=== PATIENT | male | born 1960 | race Caucasian/White ===

== ENCOUNTER 2016-08-21 09:32 | Outpatient (RCR) | payer BC ==
--- OUTSIDE RECORDS SUMMARY | 2016-07-03 12:41 | XMS REPORT | Continuity of Care Document ---
Author Author [facility] Organization 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 Role Phone [facility] [place] [facility] PCP Insurance Providers Payer Name Policy Number Subscriber Name Relationship [facility] [id number] Soledad Medina 18 Self / Same As Patient Advance Directives Directive Response Recorded Date/Time Advance Directives No 04/08/16 6:55pm Problems Active Problems Medical Problem Onset Date Status Chronic neutropenia Unknown Acute Fever Unknown Acute Headache Unknown Acute Tachycardia Unknown Acute Medications Current Home Medications Medication Dose Units Route Directions Days/Qty Instructions Start Date Folic Acid 1 Mg 1 Mg Oral Daily 04/08/16 Fluticasone Propionate 16 Gm 1 [place] Nasal Twice A Day as needed for Allergies 04/08/16 Diclofenac Sodium 75 Mg 75 Mg Oral Daily 04/08/16 Diclofenac Sodium 100 Gm Topically Every 6 Hours as needed for Pain 04/09/16 Doxycycline Hyclate 100 Mg 100 Mg Oral Twice A Day 20 04/09/16 Past Home Medications Medication Directions Ordered Status Folic Acid 0.4 Mg Tablet, 0.4 Mg Oral Daily 04/08/16 Discontinued Social History Social History Problem Response Recorded Date/Time Alcohol Use Occasionally Uses 04/08/2016 6:59pm Recreational Drug Use No 04/08/2016 6:59pm Recent Foreign Travel N JOSE MANUEL INIGUEZ 06/05/2016 12:28pm Recent Hopitalizations No 04/08/2016 6:59pm Hospital Discharge Instructions No hospital discharge instructions. Plan of Care Prescriptions See Medication Section Functional Status No functional status results. Allergies, Adverse Reactions, Alerts No known allergies. Immunizations No immunization records. Vital Signs No known vital signs results. Results No known relevant diagnostic tests, laboratory data and/or discharge summary. Procedures No known history of procedures. Encounters Encounter Location Arrival/Admit Date Discharge/Depart Date Attending Provider Discharged Recurring [facility] 06/05/16 12:28pm 12:26pm MANSOOR BROWN
[~2016-08-21 09:32] MED LIST: CYANOCOBALAMIN INJ 1000 MCG/ML (CANCER CENTER) ONE; DICL100G31 TOP; DICL75TA2 PO; DOXY100T2 PO; FLUT16SP22 NS; FOLI0.4T2 PO; FOLI1TAB24 PO
[2016-08-21] MEDS ORDERED: CYANOCOBALAMIN INJ 1000 MCG/ML (CANCER CENTER) ONE (09:41)
[2016-08-21 10:00] LABS: BASOPHILS % (AUTO) 0 % (0-10); EOSINOPHILS % (AUTO) 0 % (0-10); LYMPHOCYTES # (AUTO) 1.1 X 10^3 (1.0-4.0); LYMPHOCYTES % (AUTO) 43 % (12-44); MEAN CORPUSCULAR HEMOGLOBIN 34 PG (25-34); MEAN CORPUSCULAR HGB CONC 33 G/DL (32-36); MEAN CORPUSCULAR VOLUME 103 FL (80-99); MEAN PLATELET VOLUME 10.5 FL (7.4-10.4); MONOCYTES # (AUTO) 0.7 X 10^3 (0.0-1.0); MONOCYTES % (AUTO) 29 % (0-12); NEUTROPHILS # (AUTO) 0.7 X 10^3 (1.8-7.8); NEUTROPHILS % (AUTO) 28 % (42-75); PLATELET COUNT 154 10^3/uL (130-400); RED CELL DISTRIBUTION WIDTH 13.8 % (10.0-14.5); WHITE BLOOD COUNT 2.5 10^3/uL (4.3-11.0)
[2016-08-21 10:22] LABS: ALANINE AMINOTRANSFERASE 9 U/L (0-55); ALBUMIN 4.3 G/DL (3.2-4.5); ANION GAP 11 MMOL/L (5-14); ASPARTATE AMINO TRANSFERASE 15 U/L (5-34); BILIRUBIN,TOTAL 0.5 MG/DL (0.1-1.0); BLOOD UREA NITROGEN 9 MG/DL (7-18); BUN/CREATININE RATIO 12; CARBON DIOXIDE 23 MMOL/L (21-32); CHLORIDE 106 MMOL/L (98-107); CREATININE SERUM 0.78 MG/DL (0.60-1.30); GFR ESTIMATED > 60; GLUCOSE 163 MG/DL (70-105); LACTATE DEHYDROGENASE 261 U/L (125-220); POTASSIUM 3.5 MMOL/L (3.6-5.0); SODIUM 140 MMOL/L (135-145); TOTAL PROTEIN 7.5 G/DL (6.4-8.2)
== END 2016-10-01 | disposition home or self-care (01) ==
LOC: ONC 09:32
PROVIDERS: ATTEND Internal Medicine Hematology & Oncology
DX: E53.8 Deficiency of other specified B group vitamins (principal); Z79.899 Other long term (current) drug therapy
CPT/HCPCS: 36415; 80053; 83615; 83921; 85025; 96372; 99213

== ENCOUNTER 2017-08-20 15:12 | Outpatient (RCR) | payer BC ==
[2017-07-23 15:34] LABS: BASOPHILS % (AUTO) 0 % (0-10); EOSINOPHILS % (AUTO) 1 % (0-10); HEMATOCRIT 34 % (40-54); HEMOGLOBIN 11.4 G/DL (13.3-17.7); LYMPHOCYTES # (AUTO) 1.3 X 10^3 (1.0-4.0); LYMPHOCYTES % (AUTO) 61 % (12-44); MEAN CORPUSCULAR HEMOGLOBIN 34 PG (25-34); MEAN CORPUSCULAR HGB CONC 34 G/DL (32-36); MEAN CORPUSCULAR VOLUME 102 FL (80-99); MEAN PLATELET VOLUME 11.4 FL (7.4-10.4); MONOCYTES # (AUTO) 0.6 X 10^3 (0.0-1.0); MONOCYTES % (AUTO) 29 % (0-12); NEUTROPHILS # (AUTO) 0.2 X 10^3 (1.8-7.8); NEUTROPHILS % (AUTO) 10 % (42-75); PLATELET COUNT 160 10^3/uL (130-400); RED BLOOD COUNT 3.32 10^6/uL (4.35-5.85); RED CELL DISTRIBUTION WIDTH 14.1 % (10.0-14.5); WHITE BLOOD COUNT 2.2 10^3/uL (4.3-11.0)
[2017-07-23 16:11] LABS: ALANINE AMINOTRANSFERASE 13 U/L (0-55); ALBUMIN 4.4 GM/DL (3.2-4.5); ALKALINE PHOSPHATASE 72 U/L (40-136); BILIRUBIN,TOTAL 0.5 MG/DL (0.1-1.0); BUN/CREATININE RATIO 18; CALCIUM 9.5 MG/DL (8.5-10.1); CARBON DIOXIDE 24 MMOL/L (21-32); CHLORIDE 102 MMOL/L (98-107); CREATININE SERUM 0.77 MG/DL (0.60-1.30); GFR ESTIMATED > 60; GLUCOSE 110 MG/DL (70-105); POTASSIUM 3.9 MMOL/L (3.6-5.0); SODIUM 137 MMOL/L (135-145); TOTAL PROTEIN 7.6 GM/DL (6.4-8.2)
== END 2017-10-21 | disposition home or self-care (01) ==
LOC: ONC 15:12
PROVIDERS: ATTEND Internal Medicine Hematology & Oncology
DX: E53.8 Deficiency of other specified B group vitamins (principal); Z79.899 Other long term (current) drug therapy
CPT/HCPCS: 80053; 82607; 83615; 83921; 85025; 96372; 99213

== ENCOUNTER 2018-01-13 14:35 | Outpatient (RCR) | payer BC ==
[~2018-01-13 14:35] MED LIST changes: -CYANOCOBALAMIN INJ 1000 MCG/ML (CANCER CENTER) ONE
[2018-01-13 14:46] LABS: BASOPHILS % (AUTO) 1 % (0-10); EOSINOPHILS % (AUTO) 1 % (0-10); HEMATOCRIT 35 % (40-54); HEMOGLOBIN 11.6 G/DL (13.3-17.7); LYMPHOCYTES # (AUTO) 1.2 X 10^3 (1.0-4.0); LYMPHOCYTES % (AUTO) 55 % (12-44); MEAN CORPUSCULAR HEMOGLOBIN 35 PG (25-34); MEAN CORPUSCULAR HGB CONC 33 G/DL (32-36); MEAN CORPUSCULAR VOLUME 104 FL (80-99); MONOCYTES # (AUTO) 0.6 X 10^3 (0.0-1.0); MONOCYTES % (AUTO) 30 % (0-12); NEUTROPHILS # (AUTO) 0.3 X 10^3 (1.8-7.8); NEUTROPHILS % (AUTO) 15 % (42-75); PLATELET COUNT 161 10^3/uL (130-400); RED BLOOD COUNT 3.34 10^6/uL (4.35-5.85); RED CELL DISTRIBUTION WIDTH 14.4 % (10.0-14.5); WHITE BLOOD COUNT 2.1 10^3/uL (4.3-11.0)
[2018-01-13 15:03] LABS: ALANINE AMINOTRANSFERASE 10 U/L (0-55); ALBUMIN 4.4 GM/DL (3.2-4.5); ALKALINE PHOSPHATASE 60 U/L (40-136); BILIRUBIN,TOTAL 0.7 MG/DL (0.1-1.0); BUN/CREATININE RATIO 14; CALCIUM 9.1 MG/DL (8.5-10.1); CARBON DIOXIDE 23 MMOL/L (21-32); CHLORIDE 107 MMOL/L (98-107); CREATININE SERUM 0.76 MG/DL (0.60-1.30); GFR ESTIMATED > 60; GLUCOSE 100 MG/DL (70-105); POTASSIUM 3.8 MMOL/L (3.6-5.0); SODIUM 139 MMOL/L (135-145); TOTAL PROTEIN 7.3 GM/DL (6.4-8.2)
== END 2018-04-13 | disposition home or self-care (01) ==
LOC: ONC 14:35
PROVIDERS: ATTEND Internal Medicine Hematology & Oncology
DX: D61.818 Other pancytopenia (principal); E53.8 Deficiency of other specified B group vitamins; Z86.19 Personal history of other infectious and parasitic diseases; Z79.899 Other long term (current) drug therapy
CPT/HCPCS: 36415; 80053; 83615; 83921; 85025; 99213

== ENCOUNTER 2018-06-06 09:10 | Emergency (ER) | payer BC ==
[~2018-06-06] VITALS: Ht 177.8 cm; Wt 63.5 kg
[2018-06-06 10:50] LABS: BILIRUBIN,URINE NEGATIVE (NEGATIVE); CLARITY,URINE CLEAR; COLOR,URINE YELLOW; GLUCOSE, URINE (UA) NEGATIVE (NEGATIVE); KETONES,URINE NEGATIVE (NEGATIVE); LEUKOCYTE ESTERASE ,URINE NEGATIVE (NEGATIVE); NITRITE,URINE NEGATIVE (NEGATIVE); PH,URINE 6.5 (5-9); PROTEIN,URINE NEGATIVE (NEGATIVE); UROBILINOGEN,URINE NORMAL (NORMAL)
[2018-06-06] MEDS ORDERED: fentaNYL INJECTION 100 MCG/2 ML AMP IVP STA (10:58)
[2018-06-06] MEDS ORDERED: KETOROLAC 30 MG/ML VIAL IVP STA (10:58)
[2018-06-06 10:59] LABS: BACTERIA,URINE NEGATIVE /HPF; RBC,URINE RARE /HPF
[2018-06-06 11:20] LABS: BASOPHILS % (AUTO) 0 % (0-10); EOSINOPHILS % (AUTO) 1 % (0-10); HEMATOCRIT 35 % (40-54); LYMPHOCYTES # (AUTO) 0.7 X 10^3 (1.0-4.0); LYMPHOCYTES % (AUTO) 52 % (12-44); MEAN CORPUSCULAR HEMOGLOBIN 36 PG (25-34); MEAN CORPUSCULAR HGB CONC 35 G/DL (32-36); MEAN CORPUSCULAR VOLUME 103 FL (80-99); MEAN PLATELET VOLUME 11.3 FL (7.4-10.4); MONOCYTES # (AUTO) 0.4 X 10^3 (0.0-1.0); MONOCYTES % (AUTO) 31 % (0-12); NEUTROPHILS # (AUTO) 0.2 X 10^3 (1.8-7.8); NEUTROPHILS % (AUTO) 17 % (42-75); PLATELET COUNT 121 10^3/uL (130-400); RED BLOOD COUNT 3.36 10^6/uL (4.35-5.85); RED CELL DISTRIBUTION WIDTH 13.3 % (10.0-14.5)
[2018-06-06 11:22] LABS: WHITE BLOOD COUNT 1.4 10^3/uL (4.3-11.0)
--- NOTE | 2018-06-06 11:30 | Diagnostic Imaging Report ---
Clinical indication: Patient complains of pain in posterior right lower lung area. Exam: Chest x-ray PA and lateral views. Comparisons: Chest x-ray dated 04/08/2016. Findings: Lungs/pleura: Lungs are clear. There is no pneumothorax. There is no pleural effusion. Mediastinum: Unremarkable. Pulmonary vasculature: Unremarkable. Heart: Unremarkable. Bones/extrathoracic soft tissue: There are mildly hypertrophic spurs involving the thoracic spine. Impression: There is no radiographic evidence of acute cardiopulmonary process. Dictated by: Dictated on workstation # [id number]
--- NOTE | 2018-06-06 11:31 | ED Back Pain ---
General Chief Complaint: Back Problems Stated Complaint: BACK PAIN Nursing Triage Note: PT REPORTS BACK PAIN THAT BEGAN WEDNESDAY WITHOUT AN ORGANIC CAUSE. STATES PAIN IS SHARP IN NATURE AND NEAR THE PT'S MIDDLE BACK NEAR THE SPINE. PT DENIES FALL OR WORK RELATED INJURY OR PAST BACK INJURY Nursing Sepsis Screen: No Definite Risk (VINICIUS HARRIS MED STUDENT) History of Present Illness Date Seen by Provider: Jun 06, 2018 Time Seen by Provider: 10:35 Initial Comments Gregor (prefers to go by middle name) is a 58-year old male who presents to the ED this morning with the chief complaint of non-radiating, right -sided mid/lower back pain. Patient states the pain began last Wednesday (06/01) , was initially intermittent and 2/10. Patient states his symptoms were not directly preceded by any known trigger or activity. Pain has progressively worsened since, becoming constant and sharp, and is made worse by most any movement. Patient currently rates his pain as 7/10. Patient took a hydrocodone last night that brought little to no symptomatic relief. Patient denies previous trauma, injury, or surgery to the affected area. Patient denies numbness and/or tingling in his extremities with the exception of chronic right pinky paresthesia. Patient has history of unexplained, non-symptomatic leukopenia - - for which he received a previous bone marrow biopsy, and currently receives B12 injections every month and sees Dr. Rojas at the [facility]. Patient also has hypertension and had a prior heart catheterization. Patient has had recent left ear infection and is to see Dr. Hou (ENT) tomorrow (06/07) because the drops he was prescribed have been ineffective. Patient is unsure of the prescribed blood pressure medication he takes, but does so faithfully, although he has not yet taken it today. Patient' s in December 2017 and since then he has consumed alcohol, drinking 3-4 beers per night plus more on the weekends. Patient is a previous cigarette smoker, and currently smokes marijuana "every now and then." Patient receives primary care through [facility] and [place] [facility]. Timing/Duration: 5-6 Days Severity: Moderate Pain/Injury Location: Back (right lateral, T8-12) Method of Injury: Unknown Associated Symptoms: No fever, No numbness in legs/feet, No tingling in legs/ feet, No loss of bladder control, No loss of bowel control (VINICIUS HARRIS STUDENT) Initial Comments Here with report of right sided low back pain along the lower rib margin posteriorly lateral. Pain is worsened. Doesn't remember any specific injury. Denies shortness of breath or fever. Does admit to drinking more recently due to the of his . He has been trying to cut back on that over the last couple of weeks though. Location: Other (right thoracic) Timing/Duration: 5-6 Days, Getting Worse Severity: Moderate Pain/Injury Location: Back (right lateral, T8-12) Method of Injury: Unknown Associated Symptoms: No muscle spasms, No weakness, No lower back pain ( VINICIUS CORBIN MD) Allergies and Home Medications Allergies Coded Allergies: No Known Drug Allergies (Unverified , 05/24/13) Home Medications Diclofenac Sodium 75 Mg Tablet.dr, 75 MG PO DAILY, (Reported) Diclofenac Sodium 100 Gm Gel..gram., TOP Q6H PRN for PAIN, (Reported) Fluticasone Propionate 16 Gm [place].susp, 1 SPRAY NS BID PRN for ALLERGIES, ( Reported) Folic Acid 1 Mg Tablet, 1 MG PO DAILY, (Reported) Hydrocodone Bit/Acetaminophen 1 Tab Tab, 1 EACH PO Q4-6HR PRN for PAIN-MODERATE Prescribed by: VINICIUS CORBIN on 06/06/18 1431 Patient Home Medication List Home Medication List Reviewed: Yes (VINICIUS HARRIS STUDENT) Home Medication List Reviewed: Yes (VINICIUS CORBIN MD) Review of Systems Constitutional: No chills, No diaphoresis, No dizziness, No fever EENTM: ear pain (left) Respiratory: No cough, No short of breath Cardiovascular: No chest pain, No palpitations Gastrointestinal: No abdominal pain, No constipation, No diarrhea, No vomiting Genitourinary: no symptoms reported Musculoskeletal: back pain (right-sided lateral, inferior thoracic); No neck pain Psychiatric/Neurological: Depressed (related to 's in December 2017) ( VINICIUS HARRIS STUDENT) Constitutional: No chills, No fever EENTM: No nose congestion Respiratory: No cough, No short of breath Cardiovascular: no symptoms reported Gastrointestinal: No abdominal pain, No diarrhea, No vomiting Genitourinary: no symptoms reported (VINICIUS CORBIN MD) All Other Systems Reviewed Negative Unless Noted: Yes (VINICIUS CORBIN MD) Past Eqmqero-Jiorst-Xlxgnm Hx Past Med/Social Hx: Reviewed Nursing Past Med/Soc Hx (VINICIUS CORBIN MD) Patient Social History Alcohol Beverage of Choice: Beer (3-4 per night, with greater consumption on the weekend; use increased after 's in December 2017) Recreational Drug Use: Yes (marijuana) Drug of Choice: marijuana Former Smoker, Quit: Apr 08, 1999 Recent Foreign Travel: No Contact w/Someone Who Travel: No Recent Infectious Disease Expo: No Recent Hopitalizations: No (VINICIUS HARRIS STUDENT) Alcohol Use: Regular Use (VINICIUS CORBIN MD) Immunizations Up To Date Date of Pneumonia Vaccine: Sep 13, 2014 (VINICIUS HARRIS) Seasonal Allergies Seasonal Allergies: No (VINICIUS HARRIS) Past Medical History Surgeries: Yes Abdominal, Cardiac (heart cath), Orthopedic (sacral bone marrow biopsy) Respiratory: No Cardiac: No (HEART CATH) Neurological: No Genitourinary: No Gastrointestinal: No Hepatitis Musculoskeletal: Yes (tendinitis) Endocrine: No HEENT: No Cancer: No Psychosocial: No Integumentary: No Blood Disorders: Yes (chronic leukopenia) (VINICIUS HARRIS STUDENT) Family Medical History Reviewed Nursing Family Hx (VINICIUS CORBIN MD) Alcoholism Asthma Cardiovascular disease Colon cancer Hypertension Myocardial infarction Respiratory disorder Seizure disorder Visual disorder Physical Exam Vital Signs Vital Signs - First Documented 06/06/18 09:20 Temp 98.2 Pulse 80 Resp 18 B/P (MAP) 157/94 (115) Pulse Ox 97 O2 Delivery Room Air (VINICIUS CORBIN MD) Vital Signs Capillary Refill : Less Than 3 Seconds (VINICIUS HARRIS STUDENT) Height, Weight, BMI Height: 5'10.00" Weight: 140lbs. 0.0oz. [id number]; 20.8 BMI Method:Stated General Appearance: No Apparent Distress HEENT: No Scleral Icterus (L), No Scleral Icterus (R) (mild left ear exudate); Other (poor dentition) Neck: Non Tender, Supple; No Limited Range of Motion, No Tender Lateral, No Tender Midline Cardiovascular: Regular Rate, Rhythm, No Murmur Respiratory: Lungs Clear, No Accessory Muscle Use Gastrointestinal: Non Tender, Soft; No Distended, No Guarding Back: Vertebral Tenderness (right, lateral vertebral T8-12 with mild localized edam) Skin: No Cyanosis, No Ecchymosis (of affected area); Rash (of affected area), Tattoos/Piercings (multiple tattoos) (VINICIUS HARRIS MED STUDENT) General Appearance: No Apparent Distress, WD/WN HEENT: PERRL/EOMI, Pharynx Normal Neck: Non Tender, Supple Cardiovascular: Regular Rate, Rhythm, No Murmur Respiratory: Lungs Clear, No Accessory Muscle Use Gastrointestinal: Normal Bowel Sounds, No Pulsatile Mass, Non Tender, Soft Back: No Decreased Range of Motion, No Muscle Spasm; Vertebral Tenderness ( right, lateral vertebral T8-12 with mild localized edam) Extremity: Normal Range of Motion, Non Tender Neurologic/Psychiatric: Alert, Oriented x3 Skin: Normal Color, Warm/Dry (VINICIUS CORBIN MD) Progress/Results/Core Measures Results/Orders Lab Results Laboratory Tests Test 06/06/18 10:27 Range/Units White Blood Count 1.4 *L 4.3-11.0 10^3/uL Red Blood Count 3.36 L 4.35-5.85 10^6/uL Hemoglobin 12.0 L 13.3-17.7 G/DL Hematocrit 35 L 40-54 % Mean Corpuscular Volume 103 H 80-99 FL Mean Corpuscular Hemoglobin 36 H 25-34 PG Mean Corpuscular Hemoglobin Concent 35 32-36 G/DL Red Cell Distribution Width 13.3 10.0-14.5 % Platelet Count 121 L 130-400 10^3/uL Mean Platelet Volume 11.3 H 7.4-10.4 FL Neutrophils (%) (Auto) 17 L 42-75 % Lymphocytes (%) (Auto) 52 H 12-44 % Monocytes (%) (Auto) 31 H 0-12 % Eosinophils (%) (Auto) 1 0-10 % Basophils (%) (Auto) 0 0-10 % Neutrophils # (Auto) 0.2 L 1.8-7.8 X 10^3 Lymphocytes # (Auto) 0.7 L 1.0-4.0 X 10^3 Monocytes # (Auto) 0.4 0.0-1.0 X 10^3 Eosinophils # (Auto) 0.0 0.0-0.3 10^3/uL Basophils # (Auto) 0.0 0.0-0.1 10^3/uL Urine Color YELLOW Urine Clarity CLEAR Urine pH 6.5 5-9 Urine Specific [place] 1.005 L 1.016-1.022 Urine Protein NEGATIVE NEGATIVE Urine Glucose (UA) NEGATIVE NEGATIVE Urine Ketones NEGATIVE NEGATIVE Urine Nitrite NEGATIVE NEGATIVE Urine Bilirubin NEGATIVE NEGATIVE Urine Urobilinogen NORMAL NORMAL MG/DL Urine Leukocyte Esterase NEGATIVE NEGATIVE Urine RBC (Auto) NEGATIVE NEGATIVE Urine RBC RARE /HPF Urine WBC NONE /HPF Urine Squamous Epithelial Cells 2-5 /HPF Urine Crystals NONE /LPF Urine Bacteria NEGATIVE /HPF Urine Casts NONE /LPF Urine Mucus NEGATIVE /LPF Urine Culture Indicated NO Sodium Level 140 135-145 MMOL/L Potassium Level 3.9 3.6-5.0 MMOL/L Chloride Level 103 98-107 MMOL/L Carbon Dioxide Level 28 21-32 MMOL/L Anion Gap 9 5-14 MMOL/L Blood Urea Nitrogen 9 7-18 MG/DL Creatinine 0.79 0.60-1.30 MG/DL Estimat Glomerular Filtration Rate > 60 BUN/Creatinine Ratio 11 Glucose Level 91 70-105 MG/DL Calcium Level 9.8 8.5-10.1 MG/DL Corrected Calcium 8.5-10.1 MG/DL Total Bilirubin 0.5 0.1-1.0 MG/DL Aspartate Amino Transf (AST/SGOT) 12 5-34 U/L Alanine Aminotransferase (ALT/SGPT) 9 0-55 U/L Alkaline Phosphatase 68 40-136 U/L C-Reactive Protein High Sensitivity 0.69 H 0.00-0.50 MG/DL Total Protein 7.8 6.4-8.2 GM/DL Albumin 4.6 H 3.2-4.5 GM/DL (VINICIUS CORBIN MD) My Orders Orders - VINICIUS CORBIN MD Ua Culture If Indicated (06/06/18 10:22) Cbc With Automated Diff (06/06/18 10:24) Comprehensive Metabolic Panel (06/06/18 10:24) Hs C Reactive Protein (06/06/18 10:24) Saline Lock/Iv-Start (06/06/18 10:24) Chest Pa/Lat (2 View) (06/06/18 10:54) Fentanyl Injection (Sublimaze Injection (06/06/18 10:58) Ketorolac Injection (Toradol Injection) (06/06/18 10:58) Ct Abdomen/Pelvis W (06/06/18 12:22) Iohexol Injection (Omnipaque 350 Mg/Ml 1 (06/06/18 12:30) Ns (Ivpb) (Sodium Chloride 0.9%) (06/06/18 12:30) Hydrocodone/Apap 7.5/325 Tab (Lortab 7. (06/06/18 14:13) (VINICIUS CORBIN MD) Medications Given in ED Current Medications Medications Dose Ordered Sig/Diego Route Start Time Stop Time Status Last Admin Dose Admin Iohexol 100 ml ONCE ONCE IV 06/06/18 12:30 06/06/18 12:32 DC 06/06/18 12:48 100 ML Sodium Chloride 250 ml ONCE ONCE IV 06/06/18 12:30 06/06/18 12:32 DC 06/06/18 12:49 80 ML (VINICIUS CORBIN MD) Vital Signs/I&O 06/06/18 09:20 Temp 98.2 Pulse 80 Resp 18 B/P (MAP) 157/94 (115) Pulse Ox 97 O2 Delivery Room Air (VINICIUS CORBIN MD) Blood Pressure Mean: 115 Progress Progress Note : Progress Note Seen and evaluated. CBC to assess for possible inflammatory state, CMP for electrolyte and kidney status, and CXR to assess for possible vertebral, rib or abdominal pathology. Tramadol and Fentanyl for pain. (VINICIUS HARRIS MED STUDENT) Progress Note : Progress Note I have seen and evaluated the patient and agree with above except as indicated. I have directed the plan of care. IV, labs, , Toradol 30 mg IV and fentanyl 50 g IV ordered for pain. We will get CT abdomen and pelvis with contrast due to concerns of low chest wall pain near the area of the liver and kidneys. Patient has been drinking quite a bit of alcohol and we went to evaluate the liver further. This was discussed with the patient who agrees. Normal saline 1 L bolus. Monitor patient. 1415: CT results noted. I did discuss the case with Dr. Powell and he will see the patient in clinic for follow-up regarding his CBC. Hydrocodone 7.5/325 one tab by mouth given. We will continue pain med outpatient. I did discuss with him at length about shingles as a possible diagnosis and he will watch for lesions. Discharged home with return precautions. Patient verbalize understanding instructions and agreement with plan. (VINICIUS CORBIN MD) Diagnostic Imaging Diagonstic Imaging: CT Plain Films/CT/US/NM/MRI: abdomen, pelvis Comments [facility]. [place], [place] NAME: SOLEDAD MEDINA [facility] REC#: [id number] PT STATUS: REG ER : 1960 PHYSICIAN: VINICIUS CORBIN MD ADMIT DATE: 06/06/18/ER Draft Date of Exam:06/06/18 CT ABDOMEN/PELVIS W PROCEDURE: CT abdomen and pelvis with contrast. TECHNIQUE: Multiple contiguous axial images were obtained through the abdomen and pelvis after administration of intravenous contrast. INDICATION: Posterior right back pain. Comparison is made to study of 10/27/2013. There is mild low-density throughout the liver indicating steatosis. No focal hepatic or splenic abnormalities identified. Gallbladder, pancreas and adrenal glands are stable and unremarkable. There does appear to be small cyst anterior to the upper pole of the left kidney which has not significantly changed. No free fluid is seen within the abdomen or pelvis. There is mild aortoiliac atherosclerotic calcification. Faint lucency within the T11 vertebral body is unchanged indicating probable benign etiology. There is moderate L5-S1 degenerative disc disease. IMPRESSION: There is mild aortoiliac atherosclerotic calcification with moderate L5-S1 degenerative disc disease. Note is made of hepatic steatosis, however, no acute abnormality or adverse change is seen within the abdomen or pelvis. Dictated on workstation # [id number] Dict: 06/06/18 1307 Trans: 06/06/18 1320 [facility] [id number] Interpreted by: EILEEN MULLINS MD Electronically signed by: Reviewed: Reviewed by Me (VINICIUS CORBIN MD) Departure Impression Primary Impression: Thoracic back pain Qualified Codes: M54.6 - Pain in thoracic spine Disposition: 01 HOME, SELF-CARE Condition: Improved Departure-Patient Inst. Decision time for Depature: 14:28 (VINICIUS CORBIN MD) Referrals: [facility] (PCP) Primary Care Physician MANSOOR ROJAS Patient Instructions: Upper Back Pain (DC) Add. Discharge Instructions: All discharge instructions reviewed with patient and/or family. Voiced understanding. You may take ibuprofen 600 mg every 8 hours as needed for pain. You may take the prescribed pain medicine or Tylenol/acetaminophen 1000 mg every 8 hours as needed for pain. Do not take [id number] acetaminophen with the prescribed pain medicine as they both have acetaminophen in them. Drink plenty of fluids. Keep an eye on the area of pain on your back for development of lesions. If this should occur, we would be concerned about shingles. If that occurs, call your doctor right away so we can initiate treatment or return to the emergency department. Return for worse pain, fever, vomiting, weakness, breathing problems or other concerns as needed. Scripts Hydrocodone Bit/Acetaminophen (Hydrocodone/Acetaminophen 5/325mg Tablet) 1 Tab Tab 1 EACH PO Q4-6HR PRN for PAIN-MODERATE MDD 10, #15 TAB 0 Refills Prov: VINICIUS CORBIN MD 06/06/18 Work/School Note: Work Release Form Date Seen in the Emergency Department: Jun 06, 2018 Return to Work: Jun 08, 2018 Restrictions: No Restrictions Copy Copies To 1: MANSOOR ROJAS TIMOTHY J MED STUDENT Jun 06, 2018 11:31 VINICIUS CORBIN MD Jun 06, 2018 13:03
[2018-06-06 11:36] LABS: ALANINE AMINOTRANSFERASE 9 U/L (0-55); ALBUMIN 4.6 GM/DL (3.2-4.5); ALKALINE PHOSPHATASE 68 U/L (40-136); BILIRUBIN,TOTAL 0.5 MG/DL (0.1-1.0); BUN/CREATININE RATIO 11; CALCIUM 9.8 MG/DL (8.5-10.1); CARBON DIOXIDE 28 MMOL/L (21-32); CHLORIDE 103 MMOL/L (98-107); CREATININE SERUM 0.79 MG/DL (0.60-1.30); GFR ESTIMATED > 60; GLUCOSE 91 MG/DL (70-105); POTASSIUM 3.9 MMOL/L (3.6-5.0); SODIUM 140 MMOL/L (135-145); TOTAL PROTEIN 7.8 GM/DL (6.4-8.2)
[2018-06-06] MEDS ORDERED: IOHEXOL 350 MG/ML 100 ML (OMNIPAQUE 350) VIAL IV ONE (12:30)
[2018-06-06] MEDS ORDERED: NS 250 ML (IVPB) BAG IV ONE (12:30)
--- NOTE | 2018-06-06 13:20 | Diagnostic Imaging Report ---
PROCEDURE: CT abdomen and pelvis with contrast. TECHNIQUE: Multiple contiguous axial images were obtained through the abdomen and pelvis after administration of intravenous contrast. INDICATION: Posterior right back pain. Comparison is made to study of 10/27/2013. There is mild low-density throughout the liver indicating steatosis. No focal hepatic or splenic abnormalities identified. Gallbladder, pancreas and adrenal glands are stable and unremarkable. There does appear to be small cyst anterior to the upper pole of the left kidney which has not significantly changed. No free fluid is seen within the abdomen or pelvis. There is mild aortoiliac atherosclerotic calcification. Faint lucency within the T11 vertebral body is unchanged indicating probable benign etiology. There is moderate L5-S1 degenerative disc disease. IMPRESSION: There is mild aortoiliac atherosclerotic calcification with moderate L5-S1 degenerative disc disease. Note is made of hepatic steatosis, however, no acute abnormality or adverse change is seen within the abdomen or pelvis. Dictated by: Dictated on workstation # [id number]
[2018-06-06] MEDS ORDERED: HYDROcodone/APAP 7.5 MG/325 MG (LORTAB, LORCET PLUS) TABLET PO STA (14:13)
[2018-06-06] MEDS ORDERED: ACHD5005 PO (14:31)
[2018-06-06 14:45] VITALS: BP 146/98
== END 2018-06-06 14:45 | disposition home or self-care (01) ==
LOC: EDUNIT# 09:10 → ER 09:11
DX: M54.6 Pain in thoracic spine (principal); I10 Essential (primary) hypertension; F12.10 Cannabis abuse, uncomplicated; Z80.0 Family history of malignant neoplasm of digestive organs; Z82.49 Family history of ischemic heart disease and other diseases of the circulatory system; Z79.51 Long term (current) use of inhaled steroids; Z87.891 Personal history of nicotine dependence; Z98.890 Other specified postprocedural states
CPT/HCPCS: 36415; 71046; 74177; 80053; 81000; 85025; 86141; 96374; 96375

== ENCOUNTER 2018-08-26 09:53 | Outpatient (RCR) | payer BC ==
[~2018-08-26 09:53] MED LIST changes: +ACHD5005 PO
[2018-08-26 10:15] LABS: BASOPHILS % (AUTO) 0 % (0-10); EOSINOPHILS % (AUTO) 0 % (0-10); HEMATOCRIT 37 % (40-54); HEMOGLOBIN 12.4 G/DL (13.3-17.7); LYMPHOCYTES % (AUTO) 38 % (12-44); MEAN CORPUSCULAR HEMOGLOBIN 35 PG (25-34); MEAN CORPUSCULAR HGB CONC 34 G/DL (32-36); MEAN CORPUSCULAR VOLUME 103 FL (80-99); MEAN PLATELET VOLUME 11.6 FL (7.4-10.4); MONOCYTES # (AUTO) 0.9 X 10^3 (0.0-1.0); MONOCYTES % (AUTO) 34 % (0-12); NEUTROPHILS # (AUTO) 0.8 X 10^3 (1.8-7.8); NEUTROPHILS % (AUTO) 29 % (42-75); PLATELET COUNT 133 10^3/uL (130-400); RED CELL DISTRIBUTION WIDTH 14.8 % (10.0-14.5); WHITE BLOOD COUNT 2.8 10^3/uL (4.3-11.0)
[2018-08-26 10:27] LABS: ALANINE AMINOTRANSFERASE 11 U/L (0-55); ALBUMIN 4.3 GM/DL (3.2-4.5); ALKALINE PHOSPHATASE 59 U/L (40-136); BILIRUBIN,TOTAL 0.7 MG/DL (0.1-1.0); BUN/CREATININE RATIO 11; CALCIUM 9.2 MG/DL (8.5-10.1); CARBON DIOXIDE 26 MMOL/L (21-32); CHLORIDE 106 MMOL/L (98-107); GFR ESTIMATED > 60; GLUCOSE 106 MG/DL (70-105); POTASSIUM 4.3 MMOL/L (3.6-5.0); SODIUM 140 MMOL/L (135-145); TOTAL PROTEIN 7.1 GM/DL (6.4-8.2)
== END 2018-11-24 | disposition home or self-care (01) ==
LOC: ONC 09:53
PROVIDERS: ATTEND Internal Medicine Hematology & Oncology
DX: D61.818 Other pancytopenia (principal); E53.8 Deficiency of other specified B group vitamins; Z86.19 Personal history of other infectious and parasitic diseases; Z79.899 Other long term (current) drug therapy
CPT/HCPCS: 80053; 83615; 83921; 85025; 99213

== ENCOUNTER → 2019-05-12 | Outpatient (CLI) | payer BC ==
[2019-05-12 10:31] LABS: BASOPHILS % (AUTO) 1 % (0-10); EOSINOPHILS % (AUTO) 2 % (0-10); HEMATOCRIT 37 % (40-54); HEMOGLOBIN 12.7 G/DL (13.3-17.7); LYMPHOCYTES # (AUTO) 1.1 X 10^3 (1.0-4.0); LYMPHOCYTES % (AUTO) 58 % (12-44); MEAN CORPUSCULAR HEMOGLOBIN 34 PG (25-34); MEAN CORPUSCULAR HGB CONC 34 G/DL (32-36); MEAN CORPUSCULAR VOLUME 101 FL (80-99); MEAN PLATELET VOLUME 11.2 FL (7.4-10.4); MONOCYTES # (AUTO) 0.4 X 10^3 (0.0-1.0); MONOCYTES % (AUTO) 23 % (0-12); NEUTROPHILS # (AUTO) 0.3 X 10^3 (1.8-7.8); NEUTROPHILS % (AUTO) 17 % (42-75); PLATELET COUNT 147 10^3/uL (130-400); RED CELL DISTRIBUTION WIDTH 14.2 % (10.0-14.5); WHITE BLOOD COUNT 1.9 10^3/uL (4.3-11.0)
[2019-05-12 10:45] LABS: ALANINE AMINOTRANSFERASE 16 U/L (0-55); ALBUMIN 4.7 GM/DL (3.2-4.5); ALKALINE PHOSPHATASE 61 U/L (40-136); BILIRUBIN,TOTAL 0.7 MG/DL (0.1-1.0); BUN/CREATININE RATIO 11; CALCIUM 9.4 MG/DL (8.5-10.1); CARBON DIOXIDE 23 MMOL/L (21-32); CHLORIDE 104 MMOL/L (98-107); CREATININE SERUM 0.79 MG/DL (0.60-1.30); GFR ESTIMATED > 60; GLUCOSE 87 MG/DL (70-105); POTASSIUM 3.6 MMOL/L (3.6-5.0); SODIUM 141 MMOL/L (135-145)
== END ==
LOC: EDSTATUS 11-25 10:05 → ONC 10:07
PROVIDERS: ATTEND Internal Medicine Hematology & Oncology
DX: D61.818 Other pancytopenia (principal); E53.8 Deficiency of other specified B group vitamins; Z86.19 Personal history of other infectious and parasitic diseases; Z79.899 Other long term (current) drug therapy
CPT/HCPCS: 36415; 80053; 83615; 83921; 85025; 85652; 86038; 86141; 99213

== ENCOUNTER 2019-08-25 09:22 | Outpatient (RCR) | payer BC ==
[2019-07-07 11:03] LABS: ABSOLUTE RETIC # 40 10e9/L (24-90); BASOPHILS % (AUTO) 0 % (0-10); EOSINOPHILS % (AUTO) 1 % (0-10); HEMATOCRIT 37 % (40-54); HEMOGLOBIN 12.2 G/DL (13.3-17.7); LYMPHOCYTES # (AUTO) 1.1 X 10^3 (1.0-4.0); LYMPHOCYTES % (AUTO) 60 % (12-44); MEAN CORPUSCULAR HEMOGLOBIN 34 PG (25-34); MEAN CORPUSCULAR HGB CONC 33 G/DL (32-36); MEAN CORPUSCULAR VOLUME 102 FL (80-99); MONOCYTES # (AUTO) 0.5 X 10^3 (0.0-1.0); MONOCYTES % (AUTO) 30 % (0-12); NEUTROPHILS # (AUTO) 0.2 X 10^3 (1.8-7.8); NEUTROPHILS % (AUTO) 9 % (42-75); PLATELET COUNT 171 10^3/uL (130-400); RED CELL DISTRIBUTION WIDTH 14.1 % (10.0-14.5); WHITE BLOOD COUNT 1.8 10^3/uL (4.3-11.0)
[2019-07-07 12:48] LABS: BASOPHILS % (MANUAL) 0 %; EOSINOPHILS % (MANUAL) 1 %; LYMPHOCYTES % (MANUAL) 65 %; MONOCYTES % (MANUAL) 21 %; NEUTROPHILS % (MANUAL) 7 %
[2019-07-07 12:50] LABS: REACTIVE LYMPHOCYTES 6 %
[~2019-08-25 09:22] MED LIST changes: +LIDOCAINE 1% 20 ML (XYLOCAINE) VIAL CANCER CTR ONE
[2019-08-25 09:45] LABS: BASOPHILS % (AUTO) 0 % (0-10); EOSINOPHILS % (AUTO) 2 % (0-10); HEMATOCRIT 35 % (40-54); HEMOGLOBIN 11.5 G/DL (13.3-17.7); LYMPHOCYTES # (AUTO) 0.8 X 10^3 (1.0-4.0); LYMPHOCYTES % (AUTO) 56 % (12-44); MEAN CORPUSCULAR HEMOGLOBIN 33 PG (25-34); MEAN CORPUSCULAR HGB CONC 33 G/DL (32-36); MEAN CORPUSCULAR VOLUME 102 FL (80-99); MEAN PLATELET VOLUME 10.8 FL (7.4-10.4); MONOCYTES # (AUTO) 0.5 X 10^3 (0.0-1.0); MONOCYTES % (AUTO) 39 % (0-12); NEUTROPHILS # (AUTO) 0.1 X 10^3 (1.8-7.8); NEUTROPHILS % (AUTO) 4 % (42-75); PLATELET COUNT 132 10^3/uL (130-400); RED CELL DISTRIBUTION WIDTH 15.2 % (10.0-14.5)
[2019-08-25 09:46] LABS: WHITE BLOOD COUNT 1.4 10^3/uL (4.3-11.0)
[2019-08-25 10:05] LABS: ALANINE AMINOTRANSFERASE 7 U/L (0-55); ALBUMIN 4.4 GM/DL (3.2-4.5); ALKALINE PHOSPHATASE 63 U/L (40-136); BILIRUBIN,TOTAL 0.3 MG/DL (0.1-1.0); BUN/CREATININE RATIO 15; CALCIUM 9.2 MG/DL (8.5-10.1); CARBON DIOXIDE 24 MMOL/L (21-32); CHLORIDE 105 MMOL/L (98-107); CREATININE SERUM 0.79 MG/DL (0.60-1.30); GFR ESTIMATED > 60; GLUCOSE 101 MG/DL (70-105); POTASSIUM 4.1 MMOL/L (3.6-5.0); SODIUM 140 MMOL/L (135-145); TOTAL PROTEIN 7.4 GM/DL (6.4-8.2)
== END 2019-09-14 | disposition home or self-care (01) ==
LOC: ONC 09:22
PROVIDERS: ATTEND Internal Medicine Hematology & Oncology
DX: D61.818 Other pancytopenia (principal); E53.8 Deficiency of other specified B group vitamins; Z86.19 Personal history of other infectious and parasitic diseases; Z79.899 Other long term (current) drug therapy
CPT/HCPCS: 36415; 38222; 80053; 85007; 85025; 85027; 85045; 88184; 88185; 88237; 88264; 88305; 88311; 88313; 88377; 99213

== ENCOUNTER 2019-12-28 10:44 | Outpatient (RCR) | payer BC ==
[2019-10-13 09:02] LABS: BASOPHILS % (AUTO) 1 % (0-10); EOSINOPHILS % (AUTO) 1 % (0-10); HEMATOCRIT 38 % (40-54); HEMOGLOBIN 12.6 G/DL (13.3-17.7); LYMPHOCYTES # (AUTO) 0.8 X 10^3 (1.0-4.0); LYMPHOCYTES % (AUTO) 52 % (12-44); MEAN CORPUSCULAR HEMOGLOBIN 34 PG (25-34); MEAN CORPUSCULAR HGB CONC 34 G/DL (32-36); MEAN CORPUSCULAR VOLUME 103 FL (80-99); MONOCYTES # (AUTO) 0.7 X 10^3 (0.0-1.0); MONOCYTES % (AUTO) 43 % (0-12); NEUTROPHILS # (AUTO) 0.1 X 10^3 (1.8-7.8); NEUTROPHILS % (AUTO) 4 % (42-75); PLATELET COUNT 148 10^3/uL (130-400); RED CELL DISTRIBUTION WIDTH 14.6 % (10.0-14.5); WHITE BLOOD COUNT 1.6 10^3/uL (4.3-11.0)
[2019-10-13 09:25] LABS: ALANINE AMINOTRANSFERASE 19 U/L (0-55); ALBUMIN 4.6 GM/DL (3.2-4.5); ALKALINE PHOSPHATASE 62 U/L (40-136); BILIRUBIN,TOTAL 0.4 MG/DL (0.1-1.0); BUN/CREATININE RATIO 20; CALCIUM 9.5 MG/DL (8.5-10.1); CARBON DIOXIDE 28 MMOL/L (21-32); CHLORIDE 104 MMOL/L (98-107); CREATININE SERUM 0.76 MG/DL (0.60-1.30); GFR ESTIMATED > 60; GLUCOSE 82 MG/DL (70-105); POTASSIUM 4.2 MMOL/L (3.6-5.0); SODIUM 139 MMOL/L (135-145); TOTAL PROTEIN 7.6 GM/DL (6.4-8.2)
[2019-11-24 08:58] LABS: BASOPHILS % (AUTO) 0 % (0-10); EOSINOPHILS % (AUTO) 1 % (0-10); HEMATOCRIT 37 % (40-54); HEMOGLOBIN 12.3 G/DL (13.3-17.7); LYMPHOCYTES # (AUTO) 0.9 X 10^3 (1.0-4.0); LYMPHOCYTES % (AUTO) 53 % (12-44); MEAN CORPUSCULAR HEMOGLOBIN 34 PG (25-34); MEAN CORPUSCULAR HGB CONC 33 G/DL (32-36); MEAN CORPUSCULAR VOLUME 104 FL (80-99); MEAN PLATELET VOLUME 10.6 FL (7.4-10.4); MONOCYTES # (AUTO) 0.6 X 10^3 (0.0-1.0); MONOCYTES % (AUTO) 36 % (0-12); NEUTROPHILS # (AUTO) 0.2 X 10^3 (1.8-7.8); NEUTROPHILS % (AUTO) 10 % (42-75); PLATELET COUNT 180 10^3/uL (130-400); RED CELL DISTRIBUTION WIDTH 14.7 % (10.0-14.5); WHITE BLOOD COUNT 1.7 10^3/uL (4.3-11.0)
[2019-12-28 11:01] LABS: ABSOLUTE RETIC # 44 10e9/L (24-90); BASOPHILS % (AUTO) 1 % (0-10); EOSINOPHILS % (AUTO) 0 % (0-10); HEMATOCRIT 36 % (40-54); HEMOGLOBIN 11.7 G/DL (13.3-17.7); LYMPHOCYTES % (AUTO) 60 % (12-44); MEAN CORPUSCULAR HEMOGLOBIN 34 PG (25-34); MEAN CORPUSCULAR HGB CONC 33 G/DL (32-36); MEAN CORPUSCULAR VOLUME 105 FL (80-99); MEAN PLATELET VOLUME 10.5 FL (7.4-10.4); MONOCYTES # (AUTO) 0.6 X 10^3 (0.0-1.0); MONOCYTES % (AUTO) 39 % (0-12); NEUTROPHILS % (AUTO) 1 % (42-75); PLATELET COUNT 181 10^3/uL (130-400); RED CELL DISTRIBUTION WIDTH 14.1 % (10.0-14.5); RETICULOCYTE % 1.29 % (0.50-2.40); WHITE BLOOD COUNT 1.6 10^3/uL (4.3-11.0)
[2019-12-28 11:13] LABS: ALANINE AMINOTRANSFERASE 12 U/L (0-55); ALBUMIN 4.4 GM/DL (3.2-4.5); ALKALINE PHOSPHATASE 66 U/L (40-136); BILIRUBIN,TOTAL 0.3 MG/DL (0.1-1.0); BUN/CREATININE RATIO 16; CALCIUM 9.4 MG/DL (8.5-10.1); CARBON DIOXIDE 26 MMOL/L (21-32); CHLORIDE 106 MMOL/L (98-107); CREATININE SERUM 0.76 MG/DL (0.60-1.30); GFR ESTIMATED > 60; GLUCOSE 86 MG/DL (70-105); POTASSIUM 3.8 MMOL/L (3.6-5.0); SODIUM 141 MMOL/L (135-145); TOTAL PROTEIN 7.4 GM/DL (6.4-8.2)
[2019-12-28 12:09] LABS: BASOPHILS % (MANUAL) 0 %; EOSINOPHILS % (MANUAL) 0 %; LYMPHOCYTES % (MANUAL) 67 %; MONOCYTES % (MANUAL) 25 %; NEUTROPHILS % (MANUAL) 4 %; REACTIVE LYMPHOCYTES 4 %
[2019-12-28 12:13] LABS: ANISOCYTOSIS SLIGHT
== END 2020-01-11 | disposition home or self-care (01) ==
LOC: ONC 10:44
PROVIDERS: ATTEND Internal Medicine Hematology & Oncology
DX: D61.818 Other pancytopenia (principal); E53.8 Deficiency of other specified B group vitamins; Z86.19 Personal history of other infectious and parasitic diseases; Z79.899 Other long term (current) drug therapy
CPT/HCPCS: 38222; 80053; 83615; 85007; 85025; 85027; 85045; 88184; 88237; 88264; 88280; 88305; 88311; 88313; 88377; 99213

== ENCOUNTER 2020-01-12 12:51 | Outpatient (RCR) | payer BC ==
[~2020-01-12 12:51] MED LIST changes: -LIDOCAINE 1% 20 ML (XYLOCAINE) VIAL CANCER CTR ONE
== END 2020-04-11 | disposition home or self-care (01) ==
LOC: ONC 12:51
PROVIDERS: ATTEND Internal Medicine Hematology & Oncology
DX: D61.818 Other pancytopenia (principal); E53.8 Deficiency of other specified B group vitamins; Z86.19 Personal history of other infectious and parasitic diseases; Z79.899 Other long term (current) drug therapy
CPT/HCPCS: 99213

== ENCOUNTER → 2020-06-29 | Outpatient (CLI) | payer OTHER | LOC: LAB 08:28 | PROVIDERS: ATTEND Internal Medicine Hematology & Oncology | DX: D46.9 Myelodysplastic syndrome, unspecified (principal); Z94.84 Stem cells transplant status | CPT/HCPCS: 36415; 80197 ==

== ENCOUNTER 2021-08-04 10:09 | Outpatient (RCR) | payer OTHER ==
[2021-07-29 11:19] LABS: HEMATOCRIT 40 % (40-54); HEMOGLOBIN 13.6 g/dL (13.3-17.7); MEAN CORPUSCULAR HEMOGLOBIN 31 pg (25-34); MEAN CORPUSCULAR HGB CONC 34 g/dL (32-36); MEAN CORPUSCULAR VOLUME 92 fL (80-99); PLATELET COUNT 153 10^3/uL (130-400); WHITE BLOOD COUNT 6.5 10^3/uL (4.3-11.0)
[2021-07-29 11:29] LABS: ALBUMIN 4.2 GM/DL (3.2-4.5); POTASSIUM 3.4 MMOL/L (3.6-5.0)
[2021-07-29 11:31] LABS: CALCIUM 9.2 MG/DL (8.5-10.1)
[2021-07-29 11:32] LABS: TOTAL PROTEIN 7.3 GM/DL (6.4-8.2)
[2021-07-29 11:33] LABS: BILIRUBIN,TOTAL 0.5 MG/DL (0.1-1.0)
[2021-07-29 11:35] LABS: CREATININE SERUM 0.75 MG/DL (0.60-1.30)
[~2021-08-04 10:09] MED LIST changes: +DICL100G13 TOP; -DICL100G31 TOP; -FOLI0.4T2 PO; +FOLI0.4T6 PO; -FOLI1TAB24 PO; +FOLI1TAB33 PO
[2021-08-04 10:21] LABS: HEMATOCRIT 40 % (40-54); HEMOGLOBIN 13.1 g/dL (13.3-17.7); MEAN CORPUSCULAR HEMOGLOBIN 32 pg (25-34); MEAN CORPUSCULAR HGB CONC 33 g/dL (32-36); MEAN CORPUSCULAR VOLUME 95 fL (80-99); MEAN PLATELET VOLUME 9.4 fL (9.0-12.2); PLATELET COUNT 204 10^3/uL (130-400); WHITE BLOOD COUNT 7.8 10^3/uL (4.3-11.0)
[2021-08-04 10:39] LABS: ALBUMIN 4.3 GM/DL (3.2-4.5); BILIRUBIN,TOTAL 0.4 MG/DL (0.1-1.0); CALCIUM 9.6 MG/DL (8.5-10.1); CREATININE SERUM 0.78 MG/DL (0.60-1.30); POTASSIUM 3.6 MMOL/L (3.6-5.0); TOTAL PROTEIN 7.3 GM/DL (6.4-8.2)
== END 2021-09-12 | disposition home or self-care (01) ==
LOC: LAB 10:09
PROVIDERS: ATTEND Internal Medicine
DX: Z01.89 Encounter for other specified special examinations (principal)
CPT/HCPCS: 36415; 80053; 85027